=== PATIENT | male | born 1970 | race Caucasian/White ===

== ENCOUNTER 2019-09-27 11:40 | Emergency (ER) | payer MEDICAID ==
[~2019-09-27] VITALS: Ht 170.2 cm; Wt 77.5 kg
[2019-09-27] MEDS ORDERED: ACETAMINOPHEN 325MG TABLET PO ONE (12:30)
[2019-09-27 14:05] VITALS: BP 132/78
== END 2019-09-27 14:19 | disposition home or self-care (01) ==
LOC: ER 11:40
DX: S02.2XXA Fracture of nasal bones, initial encounter for closed fracture (principal); E78.00 Pure hypercholesterolemia, unspecified; E78.5 Hyperlipidemia, unspecified; Y04.8XXA Assault by other bodily force, initial encounter; Y93.89 Activity, other specified; Y92.89 Other specified places as the place of occurrence of the external cause; Y99.8 Other external cause status
CPT/HCPCS: 70486; 99285

== ENCOUNTER 2023-07-31 14:35 | Emergency (ER) | payer MEDICAID ==
[~2023-07-31] VITALS: Ht 160 cm; Wt 75.0 kg
[2023-07-31 15:09] VITALS: BP 110/60; PULSE 85; RESP 16; TEMP 98.1; O2SAT 96
== END 2023-07-31 19:59 | disposition left against medical advice (07) ==
LOC: ER 14:35
DX: F10.129 Alcohol abuse with intoxication, unspecified (principal); E78.00 Pure hypercholesterolemia, unspecified; Y90.9 Presence of alcohol in blood, level not specified
CPT/HCPCS: 99281